=== PATIENT | female | born 1955 | race Caucasian/White ===

== ENCOUNTER → 2023-01-15 | Outpatient (CLI) | payer OTHER ==
[2023-01-15 11:12] LABS: Basophils # (auto) 0 10 ^3/uL (0-0.2); Basophils % (auto) 0.5 % (0.0-2.0); Eosinophils # (auto) 0 10 ^3/uL (0-0.8); Eosinophils % (auto) 0.9 % (0.0-7.0); Hematocrit 44.2 % (36.0-46.0); Lymphocytes # (auto) 1.9 10 ^3/uL (0.4-5.4); Lymphocytes % (auto) 41.5 % (10.0-50.0); Mean Corpuscular Hemoglobin 29.9 pg (28.0-32.0); Mean Corpuscular Hgb Conc. 33.8 g/dL (32.0-36.0); Mean Corpuscular Volume 88.5 fL (80.0-100.0); Monocytes # (auto) 0.4 10 ^3/uL (0-1.3); Monocytes % (auto) 9.5 % (0.0-12.0); Neutrophils # (auto) 2.2 10 ^3/uL (1.6-8.6); Neutrophils % (auto) 47.6 % (37.0-80.0); Nucleated Red Blood Cells % 0.1 %; Red Cell Distribution Width 13.3 % (11.8-14.3); White Blood Cell 4.6 10^3/uL (4.4-10.8)
[2023-01-15 11:23] LABS: Urine Bacteria NONE SEEN /hpf (None Seen); Urine Blood Negative /uL (Negative); Urine Clarity Clear (Clear); Urine Color Yellow (Yellow); Urine Mucus FEW (None Seen); Urine Protein, UAD Negative (Negative); Urine Specific Gravity 1.016 (1.001-1.035); Urine Urobilinogen Normal (Negative); Urine WBC 1 /hpf (0 - 5)
[2023-01-15 11:35] LABS: Alanine Aminotransferase 14 U/L (7-40); Albumin 5.1 g/dL (3.2-4.8); Alkaline Phosphatase 87 U/L (46-116); Anion Gap 6 (5-15); Aspartate Aminotransferase 15 U/L (13-40); Calcium 10.2 mg/dL (8.7-10.4); Carbon Dioxide 30 mmol/L (20-30); Chloride 102 mmol/L (98-107); Glucose 93 mg/dL (74-106); Potassium 3.8 mmol/L (3.5-5.1); Sodium 138 mmol/L (136-145); Uric Acid 4.6 mg/dL (3.1-7.8)
[2023-01-15 11:36] LABS: BUN/Creatinine Ratio 13.5 (10.0-20.0); Blood Urea Nitrogen 12 mg/dL (9-23)
[2023-01-15 11:38] LABS: Bilirubin, Total 1.4 mg/dL (0.2-1.0)
[2023-01-15 11:39] LABS: Folate (Folic Acid) > 24.00 ng/mL (>5.38)
[2023-01-15 11:51] LABS: Triglycerides 111 mg/dL (< 150)
[2023-01-15 11:52] LABS: LDL Cholesterol 243 mg/dL (< 100)
[2023-01-15 11:53] LABS: Cholesterol 324 mg/dL (< 200); HDL Cholesterol 66 mg/dL (40-59)
== END | disposition home or self-care (01) ==
LOC: LAB 10:47
PROVIDERS: ATTEND Internal Medicine
DX: E61.2 Magnesium deficiency (principal); R78.89 Finding of other specified substances, not normally found in blood; R68.89 Other general symptoms and signs; E78.41 Elevated Lipoprotein(a); E79.0 Hyperuricemia without signs of inflammatory arthritis and tophaceous disease; E85.9 Amyloidosis, unspecified; R82.991 Hypocitraturia; R82.90 Unspecified abnormal findings in urine; R82.79 Other abnormal findings on microbiological examination of urine; D51.9 Vitamin B12 deficiency anemia, unspecified
CPT/HCPCS: 36415; 80053; 80061; 81001; 82306; 82607; 82746; 83036; 83735; 84443; 84550; 85025; 87086

== ENCOUNTER → 2023-04-23 | Outpatient (CLI) | payer OTHER ==
[~2023-04-23] MED LIST: HYDR25TA5 PO; LOSA25TA15 PO; SEMA1INJ2 SC
== END | disposition home or self-care (01) ==
LOC: XYW 10:20
PROVIDERS: ATTEND Internal Medicine
DX: N63.22 Unspecified lump in the left breast, upper inner quadrant (principal); Z79.899 Other long term (current) drug therapy; Z98.890 Other specified postprocedural states
CPT/HCPCS: 19083; 76642; 76942

== ENCOUNTER 2023-05-06 09:53 | Day surgery (SDC) | payer OTHER ==
[2023-04-30 10:14] LABS: Basophils # (auto) 0 10 ^3/uL (0-0.2); Basophils % (auto) 0.8 % (0.0-2.0); Eosinophils # (auto) 0.1 10 ^3/uL (0-0.8); Eosinophils % (auto) 1.6 % (0.0-7.0); Hemoglobin 14.8 g/dL (12.2-16.2); Lymphocytes # (auto) 1.4 10 ^3/uL (0.4-5.4); Lymphocytes % (auto) 37.5 % (10.0-50.0); Mean Corpuscular Hemoglobin 29.9 pg (28.0-32.0); Mean Corpuscular Hgb Conc. 33.6 g/dL (32.0-36.0); Mean Corpuscular Volume 88.9 fL (80.0-100.0); Monocytes # (auto) 0.3 10 ^3/uL (0-1.3); Monocytes % (auto) 8.3 % (0.0-12.0); Neutrophils % (auto) 51.8 % (37.0-80.0); Nucleated Red Blood Cells % 0.1 %; Red Blood Cells 4.95 10^6/uL (4.0-5.20); Red Cell Distribution Width 13.4 % (11.8-14.3); White Blood Cell 3.8 10^3/uL (4.4-10.8)
[2023-04-30 10:27] LABS: Urine Bacteria FEW /hpf (None Seen); Urine Blood Negative /uL (Negative); Urine Clarity Clear (Clear); Urine Color Colorless (Yellow); Urine Mucus FEW (None Seen); Urine Protein, UAD Negative (Negative); Urine Specific Gravity 1.012 (1.001-1.035); Urine Urobilinogen Normal (Negative); Urine WBC 1 /hpf (0 - 5); Urine pH 6.5 (5.0-8.0)
[2023-04-30 10:41] LABS: INR 0.98 (0.9-1.15); Partial Thromboplastin Time 27.4 SEC (24.5-34.5); Prothrombin Time 10.3 sec (9.3-11.8)
[2023-04-30 11:28] LABS: Alanine Aminotransferase 13 U/L (7-40); Alkaline Phosphatase 84 U/L (46-116); Anion Gap 7 (5-15); BUN/Creatinine Ratio 11.1 (10.0-20.0); Blood Urea Nitrogen 9 mg/dL (9-23); Calcium 10.1 mg/dL (8.5-10.1); Carbon Dioxide 28 mmol/L (20-30); Chloride 105 mmol/L (98-107); Glucose 88 mg/dL (74-106); Potassium 4.1 mmol/L (3.5-5.1); Sodium 140 mmol/L (136-145)
[2023-04-30 11:29] LABS: Albumin 4.7 g/dL (3.2-4.8); Aspartate Aminotransferase 17 U/L (13-40)
[2023-04-30 11:30] LABS: Bilirubin, Total 0.8 mg/dL (0.2-1.0)
[~2023-05-06] VITALS: Ht 162.6 cm; Wt 63.5 kg
[2023-05-06] MEDS ORDERED: ceFAZolin 2 GM/D5W50ml 50 ML IV ONE (11:02)
[2023-05-06] MEDS ORDERED: fentaNYL CITRATE 100 MCG/2 ML VL ONE (11:49)
[2023-05-06] MEDS ORDERED: MIDAZOLAM HCL 2MG/2ML 2ml VIAL (1mg/ml) ONE (11:49)
[2023-05-06] MEDS: LIDOCAINE 1% HCL (LOCAL ANESTH.) INJ 20ML MDV ONE (12:13)
[2023-05-06] MEDS: BUPIVACAINE 0.25% INJ 50ML VIAL ONE (12:13)
[2023-05-06] MEDS ORDERED: ONDANSETRON HCL 4 MG/2 ML VIAL ONE (12:34)
[2023-05-06] MEDS ORDERED: PROPOFOL 10 MG/ML 20 ML IV ONE (12:34)
[2023-05-06] MEDS ORDERED: LIDOCAINE 2% (LOCAL ANESTH.) PF 5ml SDV ONE (12:34)
[2023-05-06] MEDS ORDERED: HYDROmorphone HCL 2 MG/ML VL/or syr IV PRN (12:45)
[2023-05-06] MEDS ORDERED: ONDANSETRON HCL 4 MG/2 ML VIAL IV PRN (12:45)
[2023-05-06 12:48] VITALS: PULSE 65; RESP 19
[2023-05-06 13:33] VITALS: BP 148/88; PULSE 63; RESP 11; O2SAT 97
== END 2023-05-06 13:50 | disposition home or self-care (01) ==
LOC: SUR 09:53
PROVIDERS: ATTEND Podiatrist
DX: M67.471 Ganglion, right ankle and foot (principal); I10 Essential (primary) hypertension; Z79.899 Other long term (current) drug therapy
CPT/HCPCS: 28092; 36415; 80053; 81001; 85025; 85610; 85730; 88305; J0690; J2001; J2250; J2405; J2704; J3010; J3490

== ENCOUNTER → 2023-05-13 | Outpatient (CLI) | payer OTHER ==
[2023-05-13 12:28] LABS: Basophils # (auto) 0 10 ^3/uL (0-0.2); Basophils % (auto) 0.7 % (0.0-2.0); Eosinophils # (auto) 0 10 ^3/uL (0-0.8); Eosinophils % (auto) 0.9 % (0.0-7.0); Hemoglobin 15.5 g/dL (12.2-16.2); Lymphocytes # (auto) 1.9 10 ^3/uL (0.4-5.4); Lymphocytes % (auto) 40.1 % (10.0-50.0); Mean Corpuscular Hemoglobin 30.2 pg (28.0-32.0); Mean Corpuscular Hgb Conc. 33.8 g/dL (32.0-36.0); Mean Corpuscular Volume 89.4 fL (80.0-100.0); Monocytes # (auto) 0.4 10 ^3/uL (0-1.3); Neutrophils # (auto) 2.3 10 ^3/uL (1.6-8.6); Neutrophils % (auto) 50.3 % (37.0-80.0); Nucleated Red Blood Cells % 0.2 %; Red Blood Cells 5.14 10^6/uL (4.0-5.20); Red Cell Distribution Width 13.9 % (11.8-14.3); White Blood Cell 4.7 10^3/uL (4.4-10.8)
[2023-05-13 12:31] LABS: Urine Bacteria NONE SEEN /hpf (None Seen); Urine Blood Negative /uL (Negative); Urine Clarity Clear (Clear); Urine Color Yellow (Yellow); Urine Mucus FEW (None Seen); Urine Protein, UAD Negative (Negative); Urine Specific Gravity 1.021 (1.001-1.035); Urine Urobilinogen Normal (Negative); Urine WBC 1 /hpf (0 - 5); Urine pH 5.5 (5.0-8.0)
[2023-05-13 12:51] LABS: Alanine Aminotransferase 20 U/L (7-40); Alkaline Phosphatase 96 U/L (46-116); Anion Gap 6 (5-15); Aspartate Aminotransferase 21 U/L (13-40); BUN/Creatinine Ratio 16.3 (10.0-20.0); Blood Urea Nitrogen 14 mg/dL (9-23); Carbon Dioxide 29 mmol/L (20-30); Chloride 105 mmol/L (98-107); Glucose 97 mg/dL (74-106); Magnesium 1.8 mg/dL (1.6-2.6); Sodium 140 mmol/L (136-145)
[2023-05-13 12:52] LABS: Bilirubin, Total 0.6 mg/dL (0.2-1.0); Total Protein 7.6 g/dL (5.7-8.2)
[2023-05-13 12:55] LABS: Folate (Folic Acid) 22.27 ng/mL (>5.38)
[2023-05-13 13:04] LABS: Triglycerides 94 mg/dL (< 150)
[2023-05-13 13:05] LABS: LDL Cholesterol 147 mg/dL (< 100)
[2023-05-13 13:06] LABS: Cholesterol 232 mg/dL (< 200); HDL Cholesterol 76 mg/dL (40-59)
== END | disposition home or self-care (01) ==
LOC: LAB 11:50
PROVIDERS: ATTEND Internal Medicine
DX: R78.89 Finding of other specified substances, not normally found in blood (principal); E78.9 Disorder of lipoprotein metabolism, unspecified; R68.89 Other general symptoms and signs; R73.09 Other abnormal glucose; E61.2 Magnesium deficiency; E79.0 Hyperuricemia without signs of inflammatory arthritis and tophaceous disease; E85.9 Amyloidosis, unspecified; R82.90 Unspecified abnormal findings in urine; D51.9 Vitamin B12 deficiency anemia, unspecified
CPT/HCPCS: 36415; 80053; 80061; 81001; 82306; 82607; 82746; 83036; 83735; 84443; 85025; 87086

== ENCOUNTER → 2023-08-04 | Outpatient (CLI) | payer OTHER ==
[~2023-08-04] MED LIST changes: +LOSA-533 PO; -LOSA25TA15 PO
[2023-08-04 10:30] LABS: Urine Bacteria None Seen /hpf (None Seen)
[2023-08-04 10:41] LABS: Basophils # (auto) 0 10 ^3/uL (0-0.2); Basophils % (auto) 0.3 % (0.0-2.0); Eosinophils # (auto) 0.1 10 ^3/uL (0-0.8); Eosinophils % (auto) 1.1 % (0.0-7.0); Hematocrit 41.4 % (36.0-46.0); Hemoglobin 14.2 g/dL (12.2-16.2); Lymphocytes # (auto) 1.6 10 ^3/uL (0.4-5.4); Lymphocytes % (auto) 32.2 % (10.0-50.0); Mean Corpuscular Hemoglobin 30.3 pg (28.0-32.0); Mean Corpuscular Hgb Conc. 34.2 g/dL (32.0-36.0); Mean Corpuscular Volume 88.6 fL (80.0-100.0); Monocytes # (auto) 0.4 10 ^3/uL (0-1.3); Monocytes % (auto) 7.7 % (0.0-12.0); Neutrophils # (auto) 2.9 10 ^3/uL (1.6-8.6); Neutrophils % (auto) 58.7 % (37.0-80.0); Nucleated Red Blood Cells % 0.1 %; Red Blood Cells 4.67 10^6/uL (4.0-5.20); Red Cell Distribution Width 13.7 % (11.8-14.3); White Blood Cell 4.9 10^3/uL (4.4-10.8)
[2023-08-04 10:49] LABS: Urine Blood TRACE /uL (Negative); Urine Color Yellow (Yellow); Urine Mucus FEW (None Seen); Urine Protein, UAD TRACE (Negative); Urine Specific Gravity 1.028 (1.001-1.035); Urine Urobilinogen Normal (Negative); Urine WBC 3 /hpf (0 - 5); Urine pH 5.5 (5.0-9.0)
[2023-08-04 10:50] LABS: Urine Clarity Hazy (Clear)
[2023-08-04 11:25] LABS: Alanine Aminotransferase 17 U/L (7-40); Albumin 4.7 g/dL (3.2-4.8); Alkaline Phosphatase 79 U/L (46-116); Anion Gap 5 (5-15); Aspartate Aminotransferase 17 U/L (13-40); BUN/Creatinine Ratio 14.1 (10.0-20.0); Blood Urea Nitrogen 12 mg/dL (9-23); Calcium 10.4 mg/dL (8.5-10.1); Carbon Dioxide 28 mmol/L (20-30); Chloride 107 mmol/L (98-107); Cholesterol 216 mg/dL (< 200); Glucose 101 mg/dL (74-106); HDL Cholesterol 70 mg/dL (40-59); LDL Cholesterol 132 mg/dL (< 100); Potassium 4.2 mmol/L (3.5-5.1); Sodium 140 mmol/L (136-145); Triglycerides 108 mg/dL (< 150)
[2023-08-04 11:26] LABS: Total Protein 7.3 g/dL (5.7-8.2)
[2023-08-04 11:36] LABS: Folate (Folic Acid) 24.65 ng/mL (>5.38)
[2023-08-04 11:54] LABS: Bilirubin, Total 0.6 mg/dL (0.2-1.0)
[2023-08-04 12:35] LABS: Uric Acid 4.6 mg/dL (3.1-7.8)
== END | disposition home or self-care (01) ==
LOC: LAB 10:15
PROVIDERS: ATTEND Internal Medicine
DX: K92.2 Gastrointestinal hemorrhage, unspecified (principal); E78.5 Hyperlipidemia, unspecified; R73.03 Prediabetes; Z68.24 Body mass index [BMI] 24.0-24.9, adult; Z79.899 Other long term (current) drug therapy
CPT/HCPCS: 36415; 80053; 80061; 81001; 82306; 82607; 82746; 83036; 83735; 84443; 84550; 85025; 87086

== ENCOUNTER → 2023-12-24 | Outpatient (CLI) | payer OTHER ==
[2023-12-24 12:19] LABS: Urine Bacteria None Seen /hpf (None Seen)
[2023-12-24 12:41] LABS: Basophils # (auto) 0 10 ^3/uL (0-0.2); Basophils % (auto) 0.7 % (0.0-2.0); Eosinophils # (auto) 0 10 ^3/uL (0-0.8); Eosinophils % (auto) 0.6 % (0.0-7.0); Hematocrit 40.6 % (36.0-46.0); Hemoglobin 13.8 g/dL (12.2-16.2); Lymphocytes # (auto) 1.3 10 ^3/uL (0.4-5.4); Lymphocytes % (auto) 30.6 % (10.0-50.0); Mean Corpuscular Hemoglobin 30.4 pg (28.0-32.0); Mean Corpuscular Volume 89.6 fL (80.0-100.0); Monocytes # (auto) 0.3 10 ^3/uL (0-1.3); Monocytes % (auto) 7.9 % (0.0-12.0); Neutrophils # (auto) 2.6 10 ^3/uL (1.6-8.6); Neutrophils % (auto) 60.2 % (37.0-80.0); Platelet Count (auto) 324 10^3/uL (140-450); Red Blood Cells 4.54 10^6/uL (4.0-5.20); Red Cell Distribution Width 13.5 % (11.8-14.3); White Blood Cell 4.3 10^3/uL (4.4-10.8)
[2023-12-24 13:15] LABS: Urine Blood Negative /uL (Negative); Urine Clarity Clear (Clear); Urine Color Light-Yellow (Yellow); Urine Protein, UAD Negative (Negative); Urine Specific Gravity 1.011 (1.001-1.035); Urine Urobilinogen Normal (Negative); Urine WBC 1 /hpf (0 - 5)
[2023-12-24 13:42] LABS: Alanine Aminotransferase 11 U/L (7-40); Albumin 4.4 g/dL (3.2-4.8); Anion Gap 7 (5-15); Aspartate Aminotransferase 9 U/L (13-40); BUN/Creatinine Ratio 13.8 (10.0-20.0); Bilirubin, Total 0.8 mg/dL (0.2-1.0); Blood Urea Nitrogen 11 mg/dL (9-23); Calcium 9.9 mg/dL (8.7-10.4); Carbon Dioxide 28 mmol/L (20-31); Chloride 107 mmol/L (98-107); Cholesterol 238 mg/dL (< 200); Glucose 86 mg/dL (74-106); HDL Cholesterol 56 mg/dL (40-59); LDL Cholesterol 164 mg/dL (< 100); Potassium 3.8 mmol/L (3.5-5.1); Sodium 142 mmol/L (136-145); Triglycerides 148 mg/dL (< 150)
[2023-12-24 13:46] LABS: Alkaline Phosphatase 91 U/L (46-116)
[2023-12-24 13:47] LABS: Free T3 2.88 pg/mL (2.3-4.2); Free T4 (Free Thyroxine) 1.2 ng/dL (0.89-1.76)
== END | disposition home or self-care (01) ==
LOC: LAB 11:54
PROVIDERS: ATTEND Internal Medicine
DX: I10 Essential (primary) hypertension (principal); K92.2 Gastrointestinal hemorrhage, unspecified; R73.03 Prediabetes; E78.5 Hyperlipidemia, unspecified
CPT/HCPCS: 36415; 80053; 80061; 81001; 82306; 82533; 82607; 83036; 84439; 84443; 84481; 85025; 87086

== ENCOUNTER 2024-05-03 13:13 | Inpatient (IN) | payer OTHER ==
[~2024-05-03] VITALS: Ht 162.6 cm; Wt 72.8 kg
[2024-05-03] MEDS: SODIUM CHLORIDE 0.9% 1,000 ML IV ONE (13:45)
--- NOTE | 2024-05-03 14:18 | ED.PDOC ---
GI ASSESSMENT HPI Comments HPI: Poor Historian. 68 y/o F, presents to the ED for the CC of GI bleed. Patient states, that she has been experiencing suprapubic pain with associated diarrhea [id number]. Patient comments on, symptoms worsening today with diarrhea to be bright red in color. Patient endorses on, never having blood in stool in the past. No other symptoms or modifying factors at this time. Initial Vital Signs: Temp : BP: HR: RR: SpO2: Past Medical History: Denies any Past Surgical History: Denies any Social History: Denies smoking, ETOH, or drug use. Medications: Allergies: NKDA REVIEW OF SYSTEMS: CONSTITUTIONAL: Denies acute: fever, diaphoresis, chills, HEAD: Denies acute: headache, photophobia Eyes: Denies acute: Double vision, vision loss, eye pain, eye discharge. EARS: Denies acute: tinnitus, hearing loss, ear discharge, ear pain, THROAT: Denies acute: sore throat, swelling, difficulty swallowing , pain with swallowing, change in voice. NECK: Denies acute: neck pain, neck swelling, stiff neck. HEART: Denies acute : chest pain, palpitations, LUNGS: Denies acute: SOB, wheezing, cough, hemoptysis ABDOMEN: Denies acute: melena , hematemesis, SKIN: Denies acute: rash, redness, lesions, itchiness. EXTREMITIES: Denies acute: calf pain, numbness, tingling, weakness, denies pain in extremity. Denies acute: Low back pain. Neuro: Denies acute: focal neurological deficit, motor or sensory focal neurological deficit, tremors, seizure like activity, confusion, dizziness, change in mental status, loss of bowel or bladder function, cauda equina like symptoms. : Denies acute: dysuria, hematuria, flank pain, increase in urinary frequency. PSYCH: Denies acute: hallucination, suicidal ideation, homicidal ideation. FEMALE: Denies acute: abnormal vaginal bleeding, foul odor, unusual discharge. PHYSICAL EXAM: General: no acute distress, awake and alert. Head: normocephalic, atraumatic. Neck: supple, trachea is midline, no swelling. Throat: Normal phonation. Eyes:, no erythema, no purulent discharge, no proptosis, no icterus. Heart: regular rate, regular rhythm, no significant murmur appreciated. Lungs: no apparent respiratory distress, Able to speak in full sentences. No wheezing, no rhonchi, no crackles. No stridors Clear to auscultation bilaterally. Abdomen: Lower mid abdominal tender to palpation, non distended, soft, no guarding, no rebound, + bowel sounds. Neuro: Awake, Alert, oriented to name, self, situation, follows commands GCS=15. Speech is normal. Skin: no petechia, no purpura, no cyanosis, non-pale, not jaundice. Lower extremities: --no - Pitting edema no deformity, no focal swelling, no calf TTP. Makes eye contact. moves all four extremities. Face: no apparent facial droop. Ambulating in the ED independently. ED COURSE: Chief Complaint: GI Bleed Time Seen by MD: 14:00 Primary Care Provider: none Reviewed Notes: Nurses Notes, Medications, Allergies Allergies: Coded Allergies: NO KNOWN ALLERGIES (Unverified , 09/17/17) Home Meds Reported Medications Losartan Potassium (Losartan Potassium) Unknown Strength Tab, PO DAILY, TAB 04/30/23 Hctz (Hydrochlorothiazide) 25 Mg Tab, 25 MG PO DAILY, TAB 04/30/23 Semaglutide (Ozempic 8 mg/3Ml) 1 Inj Inj, 1 MG SC QWEEKLY, INJ 04/30/23 Information Source: Patient Mode of Arrival: Ambulatory Timing: Months Duration: Since onset Prehospital treatment: None Quality: None Vomitus: None Stool: Blood Streaked, Watery Severity: None Recent: None Recent Hx of: None Modifying Factors: Nothing Associated sign and symptoms: None Was a procedure done? Was a procedure done?: No GI differential Dx Differential Diagnosis: Other (Diverticulitis, colitis, fistula, neoplasm, hemorrhoids, anal fissures, constipation, Crohn's disease, ulcerative colitis) X-Ray, Labs, Meds, VS Vital Signs Date Time Temp Pulse Resp B/P (MAP) Pulse Ox O2 Delivery O2 Flow Rate FiO2 05/03/24 13:54 98.1 87 17 140/102 (115) 98 Lab Test 05/03/24 18:35 05/03/24 14:26 05/03/24 14:25 Range/Units Urine Color Light-yellow Yellow Urine Clarity Clear Clear Urine pH 6.5 5.0-9.0 Urine Specific [place] 1.008 1.001-1.035 Urine Protein Negative Negative Urine Ketones Negative Negative Urine Blood Negative Negative /uL Urine Nitrite Negative Negative Urine Bilirubin Negative Negative Urine Urobilinogen Normal Negative mg/dL Urine Leukocyte Esterase Trace Negative /uL Urine RBC 1 0 - 4 /hpf Urine Microscopic WBC 1 0-5 /HPF Urine Squamous Epithelial Cells None seen <5 /hpf Urine Bacteria None seen None Seen /hpf Urine Glucose Normal Normal mg/dL Lactic Acid Level 1.2 0.4-2.0 mmol/L White Blood Count 7.4 4.4-10.8 10^3/uL Red Blood Count 4.81 4.0-5.20 10^6/uL Hemoglobin 14.3 12.2-16.2 g/dL Hematocrit 42.7 36.0-46.0 % Mean Corpuscular Volume 88.8 80.0-100.0 fL Mean Corpuscular Hemoglobin 29.8 28.0-32.0 pg Mean Corpuscular Hemoglobin Concent 33.6 32.0-36.0 g/dL Red Cell Distribution Width 13.4 11.8-14.3 % Platelet Count 300 140-450 10^3/uL Mean Platelet Volume 7.2 6.9-10.8 fL Neutrophils (%) (Auto) 73.7 37.0-80.0 % Lymphocytes (%) (Auto) 19.1 10.0-50.0 % Monocytes (%) (Auto) 6.7 0.0-12.0 % Eosinophils (%) (Auto) 0.3 0.0-7.0 % Basophils (%) (Auto) 0.2 0.0-2.0 % Neutrophils # (Auto) 5.4 1.6-8.6 10 ^3/uL Lymphocytes # (Auto) 1.4 0.4-5.4 10 ^3/uL Monocytes # (Auto) 0.5 0-1.3 10 ^3/uL Eosinophils # (Auto) 0 0-0.8 10 ^3/uL Basophils # (Auto) 0 0-0.2 10 ^3/uL Nucleated Red Blood Cells 0.1 % Prothrombin Time 10.4 9.3-11.8 sec Prothrombin Time INR 0.98 0.9-1.15 Activated Partial Thromboplast Time 27.3 24.5-34.5 SEC Sodium Level 141 136-145 mmol/L Potassium Level 3.7 3.5-5.1 mmol/L Chloride Level 105 98-107 mmol/L Carbon Dioxide Level 30 20-31 mmol/L Anion Gap 6 5-15 Blood Urea Nitrogen 12 9-23 mg/dL Creatinine 0.83 0.550-1.02 mg/dL Glomerular Filtration Rate Calc 77 >90 mL/min BUN/Creatinine Ratio 14.5 10.0-20.0 Serum Glucose 76 74-106 mg/dL Calcium Level 10.0 8.7-10.4 mg/dL Total Bilirubin 1.0 0.2-1.0 mg/dL Aspartate Amino Transferase (AST) 21 13-40 U/L Alanine Aminotransferase (ALT) 21 7-40 U/L Alkaline Phosphatase 86 46-116 U/L Troponin I High Sensitivity < 3 L </=34 ng/L Total Protein 7.0 5.7-8.2 g/dL Albumin 4.9 H 3.2-4.8 g/dL Lipase 59 H 12-53 U/L [place] [address] Ph: [phone] DIAGNOSTIC IMAGING Diagnostic Imaging Report : [id number] Signed PATIENT: TUSHAR MICHELLE ACCT: [id number] UNIT: [id number] : 1955 LOC: ER ROOM / BED: / AGE / SEX: 68 / F ADM STATUS: REG ER SERVICE 1345 ORDERING PHYSICIAN: LUIS MIDDLETON DO PROCEDURE(s): ABPL - CT AB PEL WO CON-NO ORAL OR IV REASON: rectal bleed ORDER NUMBER(s): [id number], ACCESSION NUMBER(s): [id number] Exam: CT CT AB PEL WO CON-NO ORAL OR IV History: rectal bleed Comparison Study: None Technique: Multidetector spiral CT of the abdomen and pelvis was performed from lung bases to pubic symphysis. Imaging was performed without IV contrast. Axial, coronal and sagittal multiplanar reformats were obtained from the axial data set by the technologist. Radiation dose : Abdomen/Pelvis: CTDIvol 8.42 mGy, DLP 434.34 mGy*cm. Findings: Evaluation of solid organs is limited due to lack of intravenous contrast use. Lung Bases: No acute or significant lung base finding. Normal heart size. No pleural or pericardial effusion. Liver: Subcentimeter cyst in the bladder near the gallbladder fossa. Gallbladder and biliary Tree: Unremarkable Spleen: Unremarkable Pancreas: The pancreas is grossly normal in appearance. Adrenal Glands: Unremarkable Kidneys: Bilateral renal cysts. Punctate left renal calculus. Coarse left renal cortical calcification measuring up to 6 mm. No hydronephrosis. Bladder: Grossly unremarkable for degree of distention. Bowel: The stomach is grossly normal in appearance. Small bowel and colon are normal in caliber and distribution. Normal appendix is visualized in the right lower quadrant without findings of appendicitis. Rectosigmoid as well as transverse and descending colon is under distended and thick walled. Ascites: Absent Lymphadenopathy: No mesenteric, retroperitoneal or periportal lymphadenopathy. Abdominal wall and Mesentery: Unremarkable. Vasculature: The visualized abdominal aorta is normal in size and caliber. Evaluation of abdominal and pelvic vessels is limited due to lack of intravenous contrast. Pelvic Organs: Unremarkable Musculoskeletal: Postsurgical changes L4-5. IMPRESSION: 1. No acute abdominal or pelvic findings. Punctate nonobstructive left renal calculus. Bilateral renal cysts. Coarse calcification in the left renal parenchyma. Subcentimeter hepatic cyst. Diffuse underdistention of colon is nonspecific, an infectious or inflammatory process is not excluded. Clinical correlation and continued follow-up is recommended. Radiation optimization: All CT scans at this facility use at least one of these dose optimization techniques: Automated exposure control mA and/or kV adjustment per patient size (includes targeted exams where dose is matched to clinical in dication) or iterative reconstruction. HS:Y ATED BY: CARLOS MONTENEGRO MD DICTATED DATE/TIME: 05/03/24 141 SIGNED BY: CARLOS MONTENEGRO MD SIGNED DATE/TIME: 05/03/241418 CC: Time of 1ST Reevaluation: 14:30 Reevaluation 1ST: Unchanged Patient Education/Counseling: Diagnosis, Treatment Family Education/Counseling: No Family Present Comments Patient presented with the above HPI.--rectal BLEED----workup was initiated. patient was found with the above mentioned diagnosis. the following medications were ordered: IV FLUIDS, PANTOPRAZOLE please refer to order lists of meds and tests obtained by myself Dr. Middleton. Patient ED course and VS have been stabilized. Patient has been reassessed in the ED and remained in a stable condition. Pertinent incidental findings were discussed with the patient and/or family. Patient/family voices understanding and is agreeable with plan. Patient has been observed in the ED adequate length of time to insure improvement/stability. Escalation of care considered: Consideration of escalation to observation or admission Patient was ADMITTED to the medicine team for further evaluation and treatment of their presentation. All the reports of any imaging studies that were ordered by myself were reviewed by myself. Departure 1 Departure Time of Disposition: 14:30 Impression: Primary Impression: Rectal bleeding Additional Impression: Abdominal pain Disposition: ADMITTED INPATIENT Admit to: [place] Condition: Guarded Additional Instructions: [place] [address] Ph: [phone] DIAGNOSTIC IMAGING Diagnostic Imaging Report : [id number] Signed PATIENT: TUSHAR MICHELLE ACCT: [id number] UNIT: [id number] : 1955 LOC: ER ROOM / BED: / AGE / SEX: 68 / F ADM STATUS: REG ER SERVICE 1345 ORDERING PHYSICIAN: LUIS MIDDLETON DO PROCEDURE(s): ABPL - CT AB PEL WO CON-NO ORAL OR IV REASON: rectal bleed ORDER NUMBER(s): [id number], ACCESSION NUMBER(s): [id number] Exam: CT CT AB PEL WO CON-NO ORAL OR IV History: rectal bleed Comparison Study: None Technique: Multidetector spiral CT of the abdomen and pelvis was performed from lung bases to pubic symphysis. Imaging was performed without IV contrast. Axial, coronal and sagittal multiplanar reformats were obtained from the axial data set by the technologist. Radiation dose : Abdomen/Pelvis: CTDIvol 8.42 mGy, DLP 434.34 mGy*cm. Findings: Evaluation of solid organs is limited due to lack of intravenous contrast use. Lung Bases: No acute or significant lung base finding. Normal heart size. No pleural or pericardial effusion. Liver: Subcentimeter cyst in the bladder near the gallbladder fossa. Gallbladder and biliary Tree: Unremarkable Spleen: Unremarkable Pancreas: The pancreas is grossly normal in appearance. Adrenal Glands: Unremarkable Kidneys: Bilateral renal cysts. Punctate left renal calculus. Coarse left renal cortical calcification measuring up to 6 mm. No hydronephrosis. Bladder: Grossly unremarkable for degree of distention. Bowel: The stomach is grossly normal in appearance. Small bowel and colon are normal in caliber and distribution. Normal appendix is visualized in the right lower quadrant without findings of appendicitis. Rectosigmoid as well as trans verse and descending colon is under distended and thick walled. Ascites: Absent Lymphadenopathy: No mesenteric, retroperitoneal or periportal lymphadenopathy. Abdominal wall and Mesentery: Unremarkable. Vasculature: The visualized abdominal aorta is normal in size and caliber. Evaluation of abdominal and pelvic vessels is limited due to lack of intravenous contrast. Pelvic Organs: Unremarkable Musculoskeletal: Postsurgical changes L4-5. IMPRESSION: 1. No acute abdominal or pelvic findings. Punctate nonobstructive left renal calculus. Bilateral renal cysts. Coarse calcification in the left renal parenchyma. Subcentimeter hepatic cyst. Diffuse underdistention of colon is nonspecific, an infectious or inflammatory process is not excluded. Clinical correlation and continued follow-up is recommended. Radiation optimization: All CT scans at this facility use at least one of these dose optimization techniques: Automated exposure control mA and/or kV adjustment per patient size (includes targeted exams where dose is matched to clinical indication) or iterative reconstruction. HS:Y ATED BY: CARLOS MONTENEGRO MD DICTATED DATE/TIME: 05/03/24 1419 SIGNED BY: CARLOS MONTENEGRO MD SIGNED DATE/TIME: 05/03/24 1419 CC: Discharged With: Self Critical Care Note Critical Care Time?: No Heart Score Heart Score: Heart Score Response (Comments) Value History N/A 0 EKG N/A 0 Age N/A 0 Risk Factors N/A 0 Troponin N/A 0 Total 0 I personally scribed for LUIS MIDDLETON DO ([email or web address]) on 05/03/24 at 14:18. Electronically submitted by Shanti Moscoso ([email or web address]). I personally scribed for LUIS MIDDLETON DO ([email or web address]) on 05/03/24 at 14:26. Electronically submitted by Shanti Moscoso ([email or web address]). I personally scribed for LUIS MIDDLETON DO ([email or web address]) on 05/03/24 at 15:50. Electronically submitted by Shanti Moscoso ([email or web address]). LUIS MIDDLETON DO May 03, 2024 14:18
--- NOTE | 2024-05-03 14:21 | DVH ---
Exam: CT CT AB PEL WO CON-NO ORAL OR IV History: rectal bleed Comparison Study: None Technique: Multidetector spiral CT of the abdomen and pelvis was performed from lung bases to pubic symphysis. Imaging was performed without IV contrast. Axial, coronal and sagittal multiplanar reform ats were obtained from the axial data set by the technologist. Radiation dose : Abdomen/Pelvis: CTDIvol 8.42 mGy, DLP 434.34 mGy*cm. Findings: Evaluation of solid organs is limited due to lack of intravenous contrast use. Lung Bases: No acute or significant lung base finding. Normal heart size. No pleural or pericardial effusion. Liver: Subcentimeter cyst in the bladder near the gallbladder fossa. Gallbladder and biliary Tree: Unremarkable Spleen: Unremarkable Pancreas: The pancreas is grossly normal in appearance. Adrenal Glands: Unremarkable Kidneys: Bilateral renal cysts. Punctate left renal calculus. Coarse left renal cortical calcificatio n measuring up to 6 mm. No hydronephrosis. Bladder: Grossly unremarkable for degree of distention. Bowel: The stomach is grossly normal in appearance. Small bowel and colon are normal in caliber and d istribution. Normal appendix is visualized in the right lower quadrant without findings of appendici tis. Rectosigmoid as well as transverse and descending colon is under distended and thick walled. Ascites: Absent Lymphadenopathy: No mesenteric, retroperitoneal or periportal lymphadenopathy. Abdominal wall and Mesentery: Unremarkable. Vasculature: The visualized abdominal aorta is normal in size and caliber. Evaluation of abdominal a nd pelvic vessels is limited due to lack of intravenous contrast. Pelvic Organs: Unremarkable Musculoskeletal: Postsurgical changes L4-5. IMPRESSION: 1. No acute abdominal or pelvic findings. Punctate nonobstructive left renal calculus. Bilateral erin al cysts. Coarse calcification in the left renal parenchyma. Subcentimeter hepatic cyst. Diffuse und erdistention of colon is nonspecific, an infectious or inflammatory process is not excluded. Clinical correlation and continued follow-up is recommended. Radiation optimization: All CT scans at this facility use at least one of these dose optimization izaiah hniques: Automated exposure control mA and/or kV adjustment per patient size (includes targeted exams where dose is matched to clinical indication) or iterative reconstruction. HS:Y
[2024-05-03 14:58] LABS: Basophils # (auto) 0 10 ^3/uL (0-0.2); Basophils % (auto) 0.2 % (0.0-2.0); Eosinophils # (auto) 0 10 ^3/uL (0-0.8); Eosinophils % (auto) 0.3 % (0.0-7.0); Hematocrit 42.7 % (36.0-46.0); Hemoglobin 14.3 g/dL (12.2-16.2); Lymphocytes # (auto) 1.4 10 ^3/uL (0.4-5.4); Lymphocytes % (auto) 19.1 % (10.0-50.0); Mean Corpuscular Hemoglobin 29.8 pg (28.0-32.0); Mean Corpuscular Hgb Conc. 33.6 g/dL (32.0-36.0); Mean Corpuscular Volume 88.8 fL (80.0-100.0); Monocytes # (auto) 0.5 10 ^3/uL (0-1.3); Monocytes % (auto) 6.7 % (0.0-12.0); Neutrophils # (auto) 5.4 10 ^3/uL (1.6-8.6); Neutrophils % (auto) 73.7 % (37.0-80.0); Nucleated Red Blood Cells % 0.1 %; Platelet Count (auto) 300 10^3/uL (140-450); Red Blood Cells 4.81 10^6/uL (4.0-5.20); Red Cell Distribution Width 13.4 % (11.8-14.3); White Blood Cell 7.4 10^3/uL (4.4-10.8)
[2024-05-03 15:14] LABS: INR 0.98 (0.9-1.15); Partial Thromboplastin Time 27.3 SEC (24.5-34.5); Prothrombin Time 10.4 sec (9.3-11.8)
[2024-05-03 15:47] LABS: Alanine Aminotransferase 21 U/L (7-40); Alkaline Phosphatase 86 U/L (46-116); Anion Gap 6 (5-15); Aspartate Aminotransferase 21 U/L (13-40); BUN/Creatinine Ratio 14.5 (10.0-20.0); Blood Urea Nitrogen 12 mg/dL (9-23); Carbon Dioxide 30 mmol/L (20-31); Chloride 105 mmol/L (98-107); Glucose 76 mg/dL (74-106); Potassium 3.7 mmol/L (3.5-5.1); Sodium 141 mmol/L (136-145)
[2024-05-03 15:50] LABS: Albumin 4.9 g/dL (3.2-4.8); Lipase 59 U/L (12-53)
[2024-05-03 18:36] LABS: Urine Bacteria None Seen /hpf (None Seen)
[2024-05-03 19:19] LABS: Urine Blood Negative /uL (Negative); Urine Clarity Clear (Clear); Urine Color Light-Yellow (Yellow); Urine Protein, UAD Negative (Negative); Urine Specific Gravity 1.008 (1.001-1.035); Urine Squamous Epithelial Cell None Seen /hpf (<5); Urine Urobilinogen Normal (Negative); Urine WBC 1 /HPF (0-5); Urine pH 6.5 (5.0-9.0)
[2024-05-03] MEDS ORDERED: ONDANSETRON HCL 4 MG/2 ML VIAL IV PRN (19:30)
--- NOTE | 2024-05-03 22:12 | DVHHP2 ---
History of Present Illness Reason for Visit: GI bleed History of Present Illness 68-year-old female presents for evaluation of GI bleed. Patient reports having three episodes of bloody diarrhea. She describes as bright red in color. Denies nausea or vomiting. No abdominal pain. Patient denies being on blood thinners. No dizziness or shortness for breath. No other acute symptoms Past Medical History Hypertension Past Surgical History Denies Family History Noncontributory Smoke: No ALCOHOL: none Drugs: None Lives: with Family Review of Systems Review of Systems Review of systems are currently negative otherwise addressed in HPI. Allergies: Coded Allergies: NO KNOWN ALLERGIES (Unverified , 09/17/17) Medications Current Medications Medications Dose Ordered Sig/Mercedes Route Start Time Stop Time Status Last Admin Dose Admin Hydrochlorothiazide 25 mg DAILY PO 05/04/24 10:00 Losartan Potassium 50 mg DAILY PO 05/04/24 10:00 Ondansetron HCl 4 mg Q4HP PRN IV 05/03/24 19:30 Pantoprazole Sodium 40 mg DAILY IV 05/04/24 10:00 Exam Vital Signs Vital Signs Date Time Temp Pulse Resp B/P (MAP) Pulse Ox O2 Delivery O2 Flow Rate FiO2 05/03/24 20:01 98.1 102 18 147/127 (134) 96 98.1 Exam Gen: 68-year-old female in mild distress Skin: Warm, dry, normal color and texture, no rash. HEENT: Normocephalic atraumatic, mucous membranes moist and pink. Neck: Cervical and supraclavicular nodes normal without enlargement, trachea is midline, thyroid gland is normal without masses. Pulmonary: Clear to auscultation and percussion bilaterally. Cardiac: Regular rate and rhythm. No murmur Abdomen: Soft, nontender, nondistended, bowel sounds present all 4 quadrants, no guarding, no rigidity, no organomegaly. Extremities: No cyanosis, clubbing, no edema Neuro: Cranial nerves II through XII grossly intact, normal affect and speech, n o focal motor deficits. Labs/Xrays ORDERING PHYSICIAN: LUIS MIDDLETON DO PROCEDURE(s): ABPL - CT AB PEL WO CON-NO ORAL OR IV REASON: rectal bleed ORDER NUMBER(s): [id number], ACCESSION NUMBER(s): [id number] Exam: CT CT AB PEL WO CON-NO ORAL OR IV History: rectal bleed Comparison Study: None Technique: Multidetector spiral CT of the abdomen and pelvis was performed from lung bases to pubic symphysis. Imaging was performed without IV contrast. Axial, coronal and sagittal multiplanar reformats were obtained from the axial data set by the technologist. Radiation dose : Abdomen/Pelvis: CTDIvol 8.42 mGy, DLP 434.34 mGy*cm. Findings: Evaluation of solid organs is limited due to lack of intravenous contrast use. Lung Bases: No acute or significant lung base finding. Normal heart size. No pleural or pericardial effusion. Liver: Subcentimeter cyst in the bladder near the gallbladder fossa. Gallbladder and biliary Tree: Unremarkable Spleen: Unremarkable Pancreas: The pancreas is grossly normal in appearance. Adrenal Glands: Unremarkable Kidneys: Bilateral renal cysts. Punctate left renal calculus. Coarse left renal cortical calcification measuring up to 6 mm. No hydronephrosis. Bladder: Grossly unremarkable for degree of distention. Bowel: The stomach is grossly normal in appearance. Small bowel and colon are normal in caliber and distribution. Normal appendix is visualized in the right lower quadrant without findings of appendicitis. Rectosigmoid as well as transverse and descending colon is under distended and thick walled. Ascites: Absent Lymphadenopathy: No mesenteric, retroperitoneal or periportal lymphadenopathy. Abdominal wall and Mesentery: Unremarkable. Vasculature: The visualized abdominal aorta is normal in size and caliber. Evaluation of abdominal and pelvic vessels is limited due to lack of intravenous contrast. Pelvic Organs: Unremarkable Musculoskeletal: Postsurgical changes L4-5. IMPRESSION: 1. No acute abdominal or pelvic findings. Punctate nonobstructive left renal calculus. Bilateral renal cysts. Coarse calcification in the left renal parenchyma. Subcentimeter hepatic cyst. Diffuse underdistention of colon is nonspecific, an infectious or inflammatory process is not excluded. Clinical correlation and continued follow-up is recommended. Radiation optimization: All CT scans at this facility use at least one of these dose optimization techniques: Automated exposure control mA and/or kV adjustment per patient size (includes targeted exams where dose is matched to clinical indication) or iterative reconstruction. HS:Y Labs Test 05/03/24 18:35 05/03/24 14:26 05/03/24 14:25 Range/Units Urine Color Light-yellow Yellow Urine Clarity Clear Clear Urine pH 6.5 5.0-9.0 Urine Specific [place] 1.008 1.001-1.035 Urine Protein Negative Negative Urine Ketones Negative Negative Urine Blood Negative Negative /uL Urine Nitrite Negative Negative Urine Bilirubin Negative Negative Urine Urobilinogen Normal Negative mg/dL Urine Leukocyte Esterase Trace Negative /uL Urine RBC 1 0 - 4 /hpf Urine Microscopic WBC 1 0-5 /HPF Urine Squamous Epithelial Cells None seen <5 /hpf Urine Bacteria None seen None Seen /hpf Urine Glucose Normal Normal mg/dL Lactic Acid Level 1.2 0.4-2.0 mmol/L White Blood Count 7.4 4.4-10.8 10^3/uL Red Blood Count 4.81 4.0-5.20 10^6/uL Hemoglobin 14.3 12.2-16.2 g/dL Hematocrit 42.7 36.0-46.0 % Mean Corpuscular Volume 88.8 80.0-100.0 fL Mean Corpuscular Hemoglobin 29.8 28.0-32.0 pg Mean Corpuscular Hemoglobin Concent 33.6 32.0-36.0 g/dL Red Cell Distribution Width 13.4 11.8-14.3 % Platelet Count 300 140-450 10^3/uL Mean Platelet Volume 7.2 6.9-10.8 fL Neutrophils (%) (Auto) 73.7 37.0-80.0 % Lymphocytes (%) (Auto) 19.1 10.0-50.0 % Monocytes (%) (Auto) 6.7 0.0-12.0 % Eosinophils (%) (Auto) 0.3 0.0-7.0 % Basophils (%) (Auto) 0.2 0.0-2.0 % Neutrophils # (Auto) 5.4 1.6-8.6 10 ^3/uL Lymphocytes # (Auto) 1.4 0.4-5.4 10 ^3/uL Monocytes # (Auto) 0.5 0-1.3 10 ^3/uL Eosinophils # (Auto) 0 0-0.8 10 ^3/uL Basophils # (Auto) 0 0-0.2 10 ^3/uL Nucleated Red Blood Cells 0.1 % Prothrombin Time 10.4 9.3-11.8 sec Prothrombin Time INR 0.98 0.9-1.15 Activated Partial Thromboplast Time 27.3 24.5-34.5 SEC Sodium Level 141 136-145 mmol/L Potassium Level 3.7 3.5-5.1 mmol/L Chloride Level 105 98-107 mmol/L Carbon Dioxide Level 30 20-31 mmol/L Anion Gap 6 5-15 Blood Urea Nitrogen 12 9-23 mg/dL Creatinine 0.83 0.550-1.02 mg/dL Glomerular Filtration Rate Calc 77 >90 mL/min BUN/Creatinine Ratio 14.5 10.0-20.0 Serum Glucose 76 74-106 mg/dL Calcium Level 10.0 8.7-10.4 mg/dL Total Bilirubin 1.0 0.2-1.0 mg/dL Aspartate Amino Transferase (AST) 21 13-40 U/L Alanine Aminotransferase (ALT) 21 7-40 U/L Alkaline Phosphatase 86 46-116 U/L Troponin I High Sensitivity < 3 L </=34 ng/L Total Protein 7.0 5.7-8.2 g/dL Albumin 4.9 H 3.2-4.8 g/dL Lipase 59 H 12-53 U/L Assessment/Plan Assessment/Plan Assessment Rectal bleed Hypertension Plan Admit the patient to [facility] to the hospitalist GI consultation Clear liquid diet Resume home medications Repeat CBC with a.m. labs Continue treatment per orders. Plan discussed with: Patient My Orders Orders - GWEN PEREZ Procedure Category Date Status Time * Gi Dvh Metallographer CONS 05/03/24 Transmitted 19:25 Stool Occult Blood LAB 05/03/24 Logged 19:25 Hydrochlorothiazide PHA 05/04/24 In Process Tablet (Hydrochlorot 10:00 Losartan Tablet PHA 05/04/24 In Process (Cozaar Tablet) 10:00 Basic Metabolic Panel LAB 05/04/24 Verified 04:00 Admit ADMIT 05/03/24 Transmitted 19:25 Ondansetron Hcl PHA 05/03/24 In Process (Zofran) 19:30 Complete Blood Count LAB 05/04/24 Verified 04:00 Condition: Stable MARITO 05/03/24 In Process 19:25 Clear Liq Diet DIET 05/04/24 Transmitted Breakfast Bedrest With Bathroom MARITO 05/03/24 In Process Privileg 19:25 Pantoprazole PHA 05/04/24 In Process (Protonix) 10:00 Date of Service: May 03, 2024 Billing Provider: GWEN PEREZ Common Visit Codes: [id number] INP/OBS CARE (HIGH) GWEN PEREZ May 03, 2024 22:12
[2024-05-04] MEDS: PANTOPRAZOLE 40 MG/10 ML VIAL INJ IV ONE (00:18)
[2024-05-04 02:06] VITALS: PULSE 87; RESP 19; O2SAT 97
[2024-05-04 02:50] LABS: Basophils # (auto) 0 10 ^3/uL (0-0.2); Basophils % (auto) 0.4 % (0.0-2.0); Eosinophils # (auto) 0.1 10 ^3/uL (0-0.8); Eosinophils % (auto) 1.2 % (0.0-7.0); Hematocrit 39.9 % (36.0-46.0); Hemoglobin 13.4 g/dL (12.2-16.2); Lymphocytes % (auto) 26.7 % (10.0-50.0); Mean Corpuscular Hemoglobin 30.1 pg (28.0-32.0); Mean Corpuscular Hgb Conc. 33.7 g/dL (32.0-36.0); Mean Corpuscular Volume 89.3 fL (80.0-100.0); Monocytes # (auto) 0.6 10 ^3/uL (0-1.3); Monocytes % (auto) 7.4 % (0.0-12.0); Neutrophils # (auto) 4.9 10 ^3/uL (1.6-8.6); Neutrophils % (auto) 64.3 % (37.0-80.0); Platelet Count (auto) 271 10^3/uL (140-450); Red Blood Cells 4.47 10^6/uL (4.0-5.20); Red Cell Distribution Width 13.6 % (11.8-14.3); White Blood Cell 7.6 10^3/uL (4.4-10.8)
[2024-05-04 03:01] LABS: Chloride 105 mmol/L (98-107); Potassium 3.5 mmol/L (3.5-5.1); Sodium 138 mmol/L (136-145)
[2024-05-04 03:02] LABS: Anion Gap 10 (5-15); Calcium 9.5 mg/dL (8.7-10.4); Carbon Dioxide 23 mmol/L (20-31)
[2024-05-04 03:07] LABS: BUN/Creatinine Ratio 15.1 (10.0-20.0); Blood Urea Nitrogen 13 mg/dL (9-23)
[2024-05-04 03:15] LABS: Glucose 161 mg/dL (74-106)
[2024-05-04 08:00] VITALS: BP_SYST 138; BP_SYST 150; BP_DIAS 100; BP_DIAS 89; PULSE 72; PULSE 75; RESP 17; TEMP 97.7; TEMP 98.5; O2SAT 98
[2024-05-04] MEDS: PANTOPRAZOLE 40 MG/10 ML VIAL INJ IV SCH (10:03)
[2024-05-04] MEDS: LOSARTAN POTASSIUM 50 MG TAB PO SCH (10:07)
[2024-05-04] MEDS: hydroCHLOROthiazide 25 MG TAB PO SCH (10:08)
--- NOTE | 2024-05-04 12:14 | DVHINCON2 ---
GI Consult Consult Note GI consult note Date of Consultation: 04/1924 Chief Complaint: Rectal bleed Referring Physician: Luther [place] H&P: Patient presented to ER with rectal bleeding Patient gives history of three episodes of red blood rectally in the last 8-12 hours, last episode at 2:00 a.m. this morning. Patient has also noticed some mucus. Patient admits to low abdominal pain, and low back pain Patient admits to taking antibiotics for sinusitis from PCP, three different antibiotics unsure about name Patient also was started on Ozempic few months ago, last dosage was two weeks ago Patient has noticed nausea vomiting and diarrhea on and off for three months, seems to have episodes every 2-3 weeks which also has resolved No colonoscopy in past. No family history of colon cancer No blood thinners per patient Patient is scheduled for a sinus procedure 06/16/2024 Past Medical History: HTN Past Surgical History: Denies Social History: NO smoking, drinking ETOH and use of illegal drugs. Family History: Noncontributory Review of Systems: Constitutional: no fever, chill, weight loss HEENT: no eye pain, no hearing loss, no oral lesion, no scleral icterus Heart: no chest pain, no chest pressure Lung: no cough, no dyspnea with exertion Abdomen: see HPI Physical exam: General: NAD, AAOX3 Chest: lung jacobs clear to auscultation Heart: RRR, no murmur Abdomen: non-distended, no tenderness to palpation, +BS Labs: Labs Test 05/04/24 02:28 05/03/24 21:07 05/03/24 18:35 05/03/24 14:26 Range/Units White Blood Count 7.6 4.4-10.8 10^3/uL Red Blood Count 4.47 4.0-5.20 10^6/uL Hemoglobin 13.4 12.2-16.2 g/dL Hematocrit 39.9 36.0-46.0 % Mean Corpuscular Volume 89.3 80.0-100.0 fL Mean Corpuscular Hemoglobin 30.1 28.0-32.0 pg Mean Corpuscular Hemoglobin Concent 33.7 32.0-36.0 g/dL Red Cell Distribution Width 13.6 11.8-14.3 % Platelet Count 271 140-450 10^3/uL Mean Platelet Volume 7.3 6.9-10.8 fL Neutrophils (%) (Auto) 64.3 37.0-80.0 % Lymphocytes (%) (Auto) 26.7 10.0-50.0 % Monocytes (%) (Auto) 7.4 0.0-12.0 % Eosinophils (%) (Auto) 1.2 0.0-7.0 % Basophils (%) (Auto) 0.4 0.0-2.0 % Neutrophils # (Auto) 4.9 1.6-8.6 10 ^3/uL Lymphocytes # (Auto) 2.0 0.4-5.4 10 ^3/uL Monocytes # (Auto) 0.6 0-1.3 10 ^3/uL Eosinophils # (Auto) 0.1 0-0.8 10 ^3/uL Basophils # (Auto) 0 0-0.2 10 ^3/uL Nucleated Red Blood Cells 0.0 % Sodium Level 138 136-145 mmol/L Potassium Level 3.5 3.5-5.1 mmol/L Chloride Level 105 98-107 mmol/L Carbon Dioxide Level 23 20-31 mmol/L Anion Gap 10 5-15 Blood Urea Nitrogen 13 9-23 mg/dL Creatinine 0.86 0.550-1.02 mg/dL Glomerular Filtration Rate Calc 74 >90 mL/min BUN/Creatinine Ratio 15.1 10.0-20.0 Serum Glucose 161 H 74-106 mg/dL Calcium Level 9.5 8.7-10.4 mg/dL Stool Occult Blood Positive Negative Stool Occult Blood Sample #3 Negative Urine Color Light-yellow Yellow Urine Clarity Clear Clear Urine pH 6.5 5.0-9.0 Urine Specific [place] 1.008 1.001-1.035 Urine Protein Negative Negative Urine Ketones Negative Negative Urine Blood Negative Negative /uL Urine Nitrite Negative Negative Urine Bilirubin Negative Negative Urine Urobilinogen Normal Negative mg/dL Urine Leukocyte Esterase Trace Negative /uL Urine RBC 1 0 - 4 /hpf Urine Microscopic WBC 1 0-5 /HPF Urine Squamous Epithelial Cells None seen <5 /hpf Urine Bacteria None seen None Seen /hpf Urine Glucose Normal Normal mg/dL Lactic Acid Level 1.2 0.4-2.0 mmol/L Test 05/03/24 14:25 Range/Units Prothrombin Time 10.4 9.3-11.8 sec Prothrombin Time INR 0.98 0.9-1.15 Activated Partial Thromboplast Time 27.3 24.5-34.5 SEC Total Bilirubin 1.0 0.2-1.0 mg/dL Aspartate Amino Transferase (AST) 21 13-40 U/L Alanine Aminotransferase (ALT) 21 7-40 U/L Alkaline Phosphatase 86 46-116 U/L Troponin I High Sensitivity < 3 L </=34 ng/L Total Protein 7.0 5.7-8.2 g/dL Albumin 4.9 H 3.2-4.8 g/dL Lipase 59 H 12-53 U/L Imaging: CT abdomen pelvis IMPRESSION: 1. No acute abdominal or pelvic findings. Punctate nonobstructive left renal calculus. Bilateral renal cysts. Coarse calcification in the left renal parenchyma. Subcentimeter hepatic cyst. Diffuse underdistention of colon is nonspecific, an infectious or inflammatory process is not excluded. Clinical correlation and continued follow-up is recommended. Assessment: Rectal bleeding Diarrhea Plan: Discussed with Dr. Cooper Abdominal ultrasound to evaluate for if elevated lipase Recheck lipase in a.m. CRP Stool for bacterial culture and C diff. stool occult blood Levaquin and Flagyl Can advance to full liquid if tolerating clear liquid diet We will continue to monitor the patient Discussed plan with patient and RN Thank you for this consult Date of Service: May 04, 2024 Billing Provider: ZURI SCHMID Common Visit Codes: CONSULT ONLY Consultation Codes: [id number] CONSULT <45MIN ZURI SCHMID May 04, 2024 12:14
[2024-05-04 12:30] VITALS: BP 161/95; PULSE 74; RESP 18; TEMP 97.9; O2SAT 97
--- NOTE | 2024-05-04 13:01 | DVH ---
INDICATION: elevated lipase TECHNIQUE: Multiple real-time sonographic images of the abdomen were obtained. COMPARISON: None FINDINGS: The liver is homogenous in echogenicity. The liver measures 14cm. No intrahepatic biliary ductal dilatation is noted. The gallbladder wall measures 0.2 cm and is unremarkable. No gallstones or sludge is seen. The com mon duct measures 0.4 cm and is unremarkable. No pericholecystic fluid is noted. The right kidney measures 8cm. No hydronephrosis. 5 cm renal cyst. The pancreas is not well visualized due to obscuration from bowel gas. The visualized portions of the IVC and aorta are grossly unremarkable. IMPRESSION: Normal exam of the abdomen.
[2024-05-04] MEDS: metroNIDAZOLE 500MG/100ML 100 ML IV SCH (13:21)
--- NOTE | 2024-05-04 14:14 | DVHPN2 ---
Subjective Rectal bleeding for 2 days She has been having intermittent diarrhea for few months She was treated for sinusitis 3 times with antibiotics in the last few months Changes from previous H/P or p: Changes Objective Vitals Vital Signs Date Time Temp Pulse Resp B/P (MAP) Pulse Ox O2 Delivery O2 Flow Rate FiO2 05/04/24 12:30 97.9 74 18 161/95 (117) 97 97.9 05/04/24 08:00 Room Air* 0 21 Intake/Output Intake and Output 05/04/24 07:00 Intake Total 1000 ml Balance 1000 ml Intake IV Total 1000 ml General Appearance: Alert, Oriented X3, Cooperative Lungs: Clear to auscultation, Normal air movement Cardiovascular: Regular rate, Normal S1 Abdomen: Normal bowel sounds, Soft Extremities: No edema Medications Current Medications Medications Dose Ordered Sig/Mercedes Route Start Time Stop Time Status Last Admin Dose Admin Hydrochlorothiazide 25 mg DAILY PO 05/04/24 10:00 05/04/24 10:08 25 MG Losartan Potassium 50 mg DAILY PO 05/04/24 10:00 05/04/24 10:07 50 MG Ondansetron HCl 4 mg Q4HP PRN IV 05/03/24 19:30 Pantoprazole Sodium 40 mg DAILY IV 05/04/24 10:00 05/04/24 10:03 40 MG Levofloxacin/ Dextrose 100 ml @ 100 mls/hr DAILY IV 05/05/24 10:00 UNV Metronidazole 100 ml @ 100 mls/hr Q8HR IV 05/04/24 14:00 05/04/24 13:21 100 MLS/HR Laboratory Results Laboratory Tests 05/04/24 02:28 Chemistry Test 05/03/24 14:25 05/04/24 02:28 Albumin 4.9 g/dL (3.2-4.8) H Calcium Level 10.0 mg/dL (8.7-10.4) 9.5 mg/dL (8.7-10.4) Total Protein 7.0 g/dL (5.7-8.2) Coagulation Test 05/03/24 14:25 Prothrombin Time 10.4 sec (9.3-11.8) Prothrombin Time INR 0.98 (0.9-1.15) Activated Partial Thromboplast Time 27.3 SEC (24.5-34.5) Lipid panel Test 05/03/24 14:25 Lipase 59 U/L (12-53) H LFT Test 05/03/24 14:25 Alanine Aminotransferase (ALT) 21 U/L (7-40) Alkaline Phosphatase 86 U/L (46-116) Aspartate Amino Transferase (AST) 21 U/L (13-40) Total Bilirubin 1.0 mg/dL (0.2-1.0) Urinalysis Test 05/03/24 18:35 Urine Color Light-yellow (Yellow) Urine Clarity Clear (Clear) Urine pH 6.5 (5.0-9.0) Urine Specific [place] 1.008 (1.001-1.035) Urine Protein Negative (Negative) Urine Ketones Negative (Negative) Urine Blood Negative /uL (Negative) Urine Nitrite Negative (Negative) Urine Bilirubin Negative (Negative) Urine Urobilinogen Normal mg/dL (Negative) Urine Leukocyte Esterase Trace /uL (Negative) Urine RBC 1 /hpf (0 - 4) Urine Microscopic WBC 1 /HPF (0-5) Urine Squamous Epithelial Cells None seen /hpf (<5) Urine Bacteria None seen /hpf (None Seen) Urine Glucose Normal mg/dL (Normal) Assessment/Plan Assessment/Plan Rectal bleeding Diarrhea Abdominal pain Left renal calculus, nonobstructive Bilateral renal cysts Possible colitis Rule out C diff colitis Hypertension Plan Clear liquid diet IV Flagyl IV Cipro GI consult Get the C diff sample in his stools Monitor closely The rest of the management will depend on the hospital course Plan discussed with: Patient Date of Service: May 04, 2024 Billing Provider: JUAN A KAHN MD Common Visit Codes: [id number] INP/OBS CARE(HIGH) JUAN A KAHN MD May 04, 2024 14:14
[2024-05-04] MEDS: CIPROFLOXACIN 400MG/200ML 200 ML IV ONE (15:51)
[2024-05-04 17:00] VITALS: BP 142/88; PULSE 72; RESP 17; TEMP 97.7; O2SAT 97
[2024-05-04 20:00] VITALS: PULSE 64; RESP 18; O2SAT 96
[2024-05-04] MEDS: CIPROFLOXACIN 400MG/200ML 200 ML IV SCH (21:10)
[2024-05-05] VITALS (7 sets, daily range): BP systolic 140–183; BP diastolic 95–117; PULSE 64–109; RESP 18–20; TEMP 98–98.4; O2SAT 95–100
[2024-05-05] MEDS ORDERED: levoFLOXacin 500MG 100 ML IV SCH (10:00)
[2024-05-05] MEDS ORDERED: ACETAMINOPHEN 325 MG TAB PO PRN (10:15)
[2024-05-05 11:00] LABS: Basophils # (auto) 0 10 ^3/uL (0-0.2); Basophils % (auto) 0.4 % (0.0-2.0); Eosinophils # (auto) 0.1 10 ^3/uL (0-0.8); Eosinophils % (auto) 1.6 % (0.0-7.0); Hematocrit 35.9 % (36.0-46.0); Hemoglobin 12.7 g/dL (12.2-16.2); Lymphocytes # (auto) 1.3 10 ^3/uL (0.4-5.4); Lymphocytes % (auto) 28.6 % (10.0-50.0); Mean Corpuscular Hemoglobin 30.9 pg (28.0-32.0); Mean Corpuscular Hgb Conc. 35.5 g/dL (32.0-36.0); Monocytes # (auto) 0.4 10 ^3/uL (0-1.3); Monocytes % (auto) 9.7 % (0.0-12.0); Neutrophils # (auto) 2.6 10 ^3/uL (1.6-8.6); Neutrophils % (auto) 59.7 % (37.0-80.0); Nucleated Red Blood Cells % 0.1 %; Platelet Count (auto) 252 10^3/uL (140-450); Red Blood Cells 4.12 10^6/uL (4.0-5.20); Red Cell Distribution Width 13.3 % (11.8-14.3); White Blood Cell 4.4 10^3/uL (4.4-10.8)
[2024-05-05 11:11] LABS: Alanine Aminotransferase 17 U/L (7-40); Albumin 4.2 g/dL (3.2-4.8); Alkaline Phosphatase 67 U/L (46-116); Anion Gap 9 (5-15); Aspartate Aminotransferase 15 U/L (13-40); BUN/Creatinine Ratio 7.7 (10.0-20.0); Calcium 9.6 mg/dL (8.7-10.4); Carbon Dioxide 23 mmol/L (20-31); Glucose 97 mg/dL (74-106); Magnesium 1.9 mg/dL (1.6-2.6); Sodium 140 mmol/L (136-145)
[2024-05-05 11:12] LABS: Total Protein 6.1 g/dL (5.7-8.2)
[2024-05-05] MEDS: GOLYTELY 4L KIT PO ONE (11:16)
[2024-05-05 11:19] LABS: Blood Urea Nitrogen 6 mg/dL (9-23); Chloride 108 mmol/L (98-107); Lipase 69 U/L (12-53); Potassium 3.4 mmol/L (3.5-5.1)
--- NOTE | 2024-05-05 11:41 | DVHPN2 ---
Subjective No bowel movements No bleeding No abdominal pain The patient is scheduled for colonoscopy tomorrow and therefore she started a bowel regimen today per GI Changes from previous H/P or p: Changes Objective Vitals Vital Signs Date Time Temp Pulse Resp B/P (MAP) Pulse Ox O2 Delivery O2 Flow Rate FiO2 05/05/24 09:00 161/86 05/05/24 09:00 98.0 70 20 96 98.0 05/05/24 08:00 Room Air* 0 21 Intake/Output Intake and Output 05/05/24 07:00 Intake Total 1200 ml Output Total 600 ml Balance 600 ml Intake Oral 800 ml IV Total 400 ml Output Urine Total 600 ml General Appearance: Alert, Oriented X3, Cooperative Lungs: Clear to auscultation, Normal air movement Cardiovascular: Regular rate, Normal S1 Abdomen: Normal bowel sounds, Soft Extremities: No edema Medications Current Medications Medications Dose Ordered Sig/Mercedes Route Start Time Stop Time Status Last Admin Dose Admin Hydrochlorothiazide 25 mg DAILY PO 05/04/24 10:00 05/05/24 08:59 25 MG Losartan Potassium 50 mg DAILY PO 05/04/24 10:00 05/05/24 09:00 50 MG Ondansetron HCl 4 mg Q4HP PRN IV 05/03/24 19:30 Pantoprazole Sodium 40 mg DAILY IV 05/04/24 10:00 05/05/24 08:59 40 MG Metronidazole 100 ml @ 100 mls/hr Q8HR IV 05/04/24 14:00 05/05/24 05:32 100 MLS/HR Ciprofloxacin 200 ml @ 200 mls/hr Q12HR IV 05/04/24 22:00 05/05/24 08:59 200 MLS/HR Acetaminophen 650 mg Q6HP PRN PO 05/05/24 10:15 Laboratory Results Laboratory Tests 05/05/24 09:08 Chemistry Test 05/05/24 09:08 Albumin 4.2 g/dL (3.2-4.8) Calcium Level 9.6 mg/dL (8.7-10.4) Magnesium Level 1.9 mg/dL (1.6-2.6) Total Protein 6.1 g/dL (5.7-8.2) Lipid panel Test 05/05/24 09:08 Lipase 69 U/L (12-53) H LFT Test 05/05/24 09:08 Alanine Aminotransferase (ALT) 17 U/L (7-40) Alkaline Phosphatase 67 U/L (46-116) Aspartate Amino Transferase (AST) 15 U/L (13-40) Total Bilirubin 1.0 mg/dL (0.2-1.0) Urinalysis Test 05/03/24 18:35 Urine Color Light-yellow (Yellow) Urine Clarity Clear (Clear) Urine pH 6.5 (5.0-9.0) Urine Specific [place] 1.008 (1.001-1.035) Urine Protein Negative (Negative) Urine Ketones Negative (Negative) Urine Blood Negative /uL (Negative) Urine Nitrite Negative (Negative) Urine Bilirubin Negative (Negative) Urine Urobilinogen Normal mg/dL (Negative) Urine Leukocyte Esterase Trace /uL (Negative) Urine RBC 1 /hpf (0 - 4) Urine Microscopic WBC 1 /HPF (0-5) Urine Squamous Epithelial Cells None seen /hpf (<5) Urine Bacteria None seen /hpf (None Seen) Urine Glucose Normal mg/dL (Normal) Assessment/Plan Assessment/Plan Rectal bleeding Diarrhea Abdominal pain Left renal calculus, nonobstructive Bilateral renal cysts Possible colitis Rule out C diff colitis Hypertension Plan Clear liquid diet IV Flagyl IV Cipro GI consult Get the C diff sample in his stools Monitor closely The rest of the management will depend on the hospital course 05/05/2024: Clear liquid diet Bowel preparation for colonoscopy for tomorrow No bowel movements No bleeding Hemoglobin is stable C diff sample is still pending The rest of the management will depend on the hospital course Plan discussed with: Patient My Orders Orders - JUAN A KAHN MD Procedure Category Date Status Time Ciprofloxacin PHA 05/04/24 In Process 400mg/200ml (Cipro Iv) 22:00 Acetaminophen Tablet PHA 05/05/24 In Process (Tylenol Tablet) 10:15 Date of Service: May 05, 2024 Billing Provider: JUAN A KAHN MD Common Visit Codes: [id number] INP/OBS CARE(HIGH) JUAN A KAHN MD May 05, 2024 11:40
--- NOTE | 2024-05-05 12:03 | DVHPN2 ---
Progress Note Date Seen: May 05, 2024 Resident Creating Document: SATURNINO URBINA RESIDENT Medical Necessity Reason Pt with a Central, PICC or Fol: No Subjective Review of Systems Patient was seen and examined on the bedside. She is alert, Oriented x3. Mentioned no per rectal bleeding and or any bowel movements since admission. No other active complaint. Scheduled for possible colonoscopy tomorrow and pending C diff study. If C diff is positive we will cancel the colonoscopy and recommendation would be outpatient elective colonoscopy after discharge. Objective vital signs Vital Sign Date Time Temp Pulse Resp B/P (MAP) Pulse Ox O2 Delivery O2 Flow Rate FiO2 05/05/24 09:00 161/86 05/05/24 09:00 98.0 70 20 96 98.0 05/05/24 08:00 Room Air* 0 21 Total Intake and Output 05/04/24 05/04/24 05/05/24 15:00 23:00 07:00 Intake Total 100 ml 200 ml 900 ml Output Total 600 ml Balance 100 ml 200 ml 300 ml medications Current Medications Medications Dose Ordered Sig/Mercedes Route Start Time Stop Time Status Last Admin Dose Admin Hydrochlorothiazide 25 mg DAILY PO 05/04/24 10:00 05/05/24 08:59 25 MG Losartan Potassium 50 mg DAILY PO 05/04/24 10:00 05/05/24 09:00 50 MG Ondansetron HCl 4 mg Q4HP PRN IV 05/03/24 19:30 Pantoprazole Sodium 40 mg DAILY IV 05/04/24 10:00 05/05/24 08:59 40 MG Metronidazole 100 ml @ 100 mls/hr Q8HR IV 05/04/24 14:00 05/05/24 05:32 100 MLS/HR Ciprofloxacin 200 ml @ 200 mls/hr Q12HR IV 05/04/24 22:00 05/05/24 08:59 200 MLS/HR Acetaminophen 650 mg Q6HP PRN PO 05/05/24 10:15 Examination Physical examination: General Appearance: Alert, Oriented X3, Cooperative, No acute distress HEENT: Atraumatic, PERRLA, EOMI, Mucous membrane moist/pink Respiratory: Clear to auscultation, Normal air movement Cardiovascular: Regular rate, Normal S1, Normal S2, No murmurs, no chest wall tenderness Abdominal: Normal bowel sounds, Soft, No tenderness, No hepatospenomegaly, No masses Extremities: No clubbing, No cyanosis, No edema, Normal pulses, No tenderness/swelling Skin: No rashes, No breakdown, No significant lesion Neuro: Normal gait, Normal speech, Strength at 5/5 X4 ext, Normal tone, Sensation intact, Cranial nerves 3-12 NL, Reflexes 2+ Psych/Mental Status: Mental status NL, Mood NL laboratory and microbiology Laboratory Tests 05/05/24 09:08 Test 05/05/24 09:08 Range/Units Serum Glucose 97 74-106 mg/dL Labs and/or images reviewed: Labs reviewed by me, Image(s) reviewed by me Problem List/Assessment/Plan Problem List/Assessment/Plan Assessment: # Rectal bleeding # Diarrhea # Rule out pancreatitis # Possible colitis # Ruled out cholelithiasis Plan: - Clear liquid diet - H&H is stable. - Possible colonoscopy tomorrow - Pending C diff study - Stool occult blood negative - Elevated CRP - Continue IV antibiotics and other management as per primary - We will follow the patient. Plan discussed with Dr. Cooper Plan discussed with: Patient, Other SATURNINO URBINA RESIDENT May 05, 2024 12:03
[2024-05-05] MEDS: POTASSIUM EFFERVESENT TAB 25 MEQ PO ONE (13:54)
[2024-05-06] VITALS (7 sets, daily range): BP systolic 141–154; BP diastolic 89–92; PULSE 73–98; RESP 12–20; TEMP 98–98.1; O2SAT 96–99
[2024-05-06 05:32] LABS: Basophils # (auto) 0 10 ^3/uL (0-0.2); Basophils % (auto) 0.8 % (0.0-2.0); Eosinophils # (auto) 0.1 10 ^3/uL (0-0.8); Eosinophils % (auto) 2.8 % (0.0-7.0); Hematocrit 39.7 % (36.0-46.0); Hemoglobin 13.6 g/dL (12.2-16.2); Lymphocytes # (auto) 1.4 10 ^3/uL (0.4-5.4); Lymphocytes % (auto) 36.8 % (10.0-50.0); Mean Corpuscular Hemoglobin 30.2 pg (28.0-32.0); Mean Corpuscular Hgb Conc. 34.3 g/dL (32.0-36.0); Mean Corpuscular Volume 88.2 fL (80.0-100.0); Monocytes # (auto) 0.4 10 ^3/uL (0-1.3); Neutrophils # (auto) 1.9 10 ^3/uL (1.6-8.6); Neutrophils % (auto) 49.6 % (37.0-80.0); Nucleated Red Blood Cells % 0.5 %; Platelet Count (auto) 289 10^3/uL (140-450); Red Blood Cells 4.49 10^6/uL (4.0-5.20); Red Cell Distribution Width 13.2 % (11.8-14.3); White Blood Cell 3.8 10^3/uL (4.4-10.8)
[2024-05-06 05:46] LABS: Alanine Aminotransferase 17 U/L (7-40); Albumin 4.5 g/dL (3.2-4.8); Alkaline Phosphatase 74 U/L (46-116); Anion Gap 11 (5-15); Aspartate Aminotransferase 18 U/L (13-40); BUN/Creatinine Ratio 5.8 (10.0-20.0); Carbon Dioxide 25 mmol/L (20-31); Chloride 105 mmol/L (98-107); Glucose 90 mg/dL (74-106); Potassium 3.8 mmol/L (3.5-5.1); Sodium 141 mmol/L (136-145)
[2024-05-06 05:47] LABS: Bilirubin, Total 1.1 mg/dL (0.2-1.0); Total Protein 6.8 g/dL (5.7-8.2)
[2024-05-06] MEDS: MAGNESIUM CITRATE SOLUTION 300 ML BTL PO ONE (05:53)
[2024-05-06 06:00] LABS: Blood Urea Nitrogen 5 mg/dL (9-23)
--- NOTE | 2024-05-06 06:02 | DVH ---
EXAM: XR Chest, 1 View CLINICAL INDICATION: colonoscopy TECHNIQUE: Frontal view of the chest. COMPARISON: None FINDINGS: LUNGS AND PLEURAL SPACES: Unremarkable. No consolidation. No pneumothorax. HEART: Unremarkable. No cardiomegaly. MEDIASTINUM: Unremarkable. Normal mediastinal contour. BONES/JOINTS: Unremarkable. No acute fracture. OTHER FINDINGS: . None. ... IMPRESSION: No acute cardiopulmonary process.
--- NOTE | 2024-05-06 06:05 | ECG ---
[facility] Test Date: 2024-05-06 Test Time: 05:56:40 Pat Name: TUSHAR MICHELLE Department: Room: 0274 B Gender: F Behavior Management Specialist: TAMICA : 1955 Requested By: JUAN A KAHN Order Number: [id number] Reading MD: Sarthak Love Measurements Intervals [place] Rate: 61 P: 79 WA: 170 QRS: 51 QRSD: 143 T: 11 QT: 445 QTc: 449 Interpretive Statements Sinus rhythm Right bundle branch block Electronically Signed On 05-10-2024 21:25:06 PST by Sarthak Love Please click the below link to view image of tracing.
[2024-05-06] MEDS: GOLYTELY 4L KIT PO ONE (06:18)
[2024-05-06] MEDS ORDERED: fentaNYL CITRATE 100 MCG/2 ML VL ONE (07:50)
[2024-05-06] MEDS ORDERED: MIDAZOLAM HCL 5 MG/ML-1ML VIAL ONE (07:50)
[2024-05-06] MEDS ORDERED: SODIUM CHLORIDE LOCK 10 ML ONE (07:50)
[2024-05-06] MEDS ORDERED: diphenhdrAMINE HCL 50 MG/1 ML VL ONE (07:50)
--- NOTE | 2024-05-06 17:53 | DVHOP2 ---
Operative Report DATE OF OPERATION: 05/06/24 PROCEDURE: Colonoscopy with snare polypectomy. PREOPERATIVE INDICATION: The patient is a 68 -year-old female undergoing colonoscopy for evaluation of rectal bleeding and mucus POSTOPERATIVE DIAGNOSES: 1. Patient had three benign-appearing rectosigmoid polyps less than 1 cm in size, two were removed by snare polypectomy and one by cold biopsy forceps 2. There was minimal sigmoiditis and sigmoid biopsies were obtained 3. The patient had a 1.5-2 cm hyperplastic type superficially spreading benign polyp seen in the mid ascending colon that was removed completely via snare polypectomy and the specimens were retrieved 4. Trace internal hemorrhoids otherwise normal examination up to the cecum and terminal PROCEDURE PERFORMED BY: Alexandre Cooper M.D. SCOPE: Olympus videocolonoscope. ASA CLASS: 2 PREOPERATIVE MEDICATIONS: Versed 4 mg, Fentanyl 100 mcg, Benadryl 50 mg PROCEDURE IN DETAIL: After obtaining an informed consent, the patient was placed on left lateral decubitus position. She was then sedated with the above medications. A rectal examination was performed that was normal. The colonoscope was then passed through the anus into the rectosigmoid and through the descending, transverse, and ascending colon up to the cecum with visualization of the appendiceal orifice, base of the cecum and the ileocecal valve. The colonoscope was then withdrawn. The distal 5 cm of the terminal ileum were normal. In the mid ascending colon there was a sessile benign-appearing superficially spreading polypoid lesion. This appeared either hyperplastic or a serrated adenoma This was removed completely via hot snare polypectomy and the specimens were retrieved. The patient had minimal sigmoiditis and sigmoid biopsies were obtained In the rectosigmoid the patient had three less than 1 cm benign-appearing polyps. One was removed by cold biopsy forceps and the other two were removed by hot snare polypectomy On retroflexion and straight on view the patient had trace internal hemorrhoids. The patient tolerated the procedure well without difficulty. WITHDRAWAL TIME: 20 minutes QUALITY OF THE PREP: [place] Bowel Prep score: 9. COMPLICATIONS : None SPECIMENS: Ascending colon polyp Rectosigmoid polyps Sigmoid biopsies DISPOSITION: Transfer back to the floor Stable PLAN: 1. Repeat colonoscopy based on biopsy result likely in 2-3 years for surveillance 2. Resume GI soft diet advance as tolerated 3. DC aspirin NSAIDs blood thinners for one week 4. Outpatient follow up with me in 4-6 weeks to review results and discuss further management ALEXANDRE COOPER MD May 06, 2024 17:53
--- NOTE | 2024-05-06 20:32 | DVHPN2 ---
Subjective Colonoscopy today Changes from previous H/P or p: Changes Objective Vitals Vital Signs Date Time Temp Pulse Resp B/P (MAP) Pulse Ox O2 Delivery O2 Flow Rate FiO2 05/06/24 18:07 64 14 149/89 (109) 97 05/06/24 17:25 Room Air 0 05/06/24 17:25 97 05/06/24 16:39 98.1 98.1 Intake/Output Intake and Output 05/06/24 07:00 Intake Total 2150 ml Balance 2150 ml Intake Oral 1350 ml IV Total 800 ml # Voids 10 General Appearance: Alert, Oriented X3, Cooperative Lungs: Clear to auscultation, Normal air movement Cardiovascular: Regular rate, Normal S1 Abdomen: Normal bowel sounds, Soft Extremities: No edema Medications Current Medications Medications Dose Ordered Sig/Mercedes Route Start Time Stop Time Status Last Admin Dose Admin Hydrochlorothiazide 25 mg DAILY PO 05/04/24 10:00 05/06/24 09:29 25 MG Losartan Potassium 50 mg DAILY PO 05/04/24 10:00 05/06/24 09:30 50 MG Ondansetron HCl 4 mg Q4HP PRN IV 05/03/24 19:30 Pantoprazole Sodium 40 mg DAILY IV 05/04/24 10:00 05/06/24 09:30 40 MG Metronidazole 100 ml @ 100 mls/hr Q8HR IV 05/04/24 14:00 05/06/24 13:55 100 MLS/HR Ciprofloxacin 200 ml @ 200 mls/hr Q12HR IV 05/04/24 22:00 05/06/24 09:28 200 MLS/HR Acetaminophen 650 mg Q6HP PRN PO 05/05/24 10:15 Laboratory Results Laboratory Tests 05/06/24 04:59 Chemistry Test 05/06/24 04:59 Albumin 4.5 g/dL (3.2-4.8) Calcium Level 10.0 mg/dL (8.7-10.4) Magnesium Level 2.0 mg/dL (1.6-2.6) Total Protein 6.8 g/dL (5.7-8.2) LFT Test 05/06/24 04:59 Alanine Aminotransferase (ALT) 17 U/L (7-40) Alkaline Phosphatase 74 U/L (46-116) Aspartate Amino Transferase (AST) 18 U/L (13-40) Total Bilirubin 1.1 mg/dL (0.2-1.0) H Urinalysis Test 05/03/24 18:35 Urine Color Light-yellow (Yellow) Urine Clarity Clear (Clear) Urine pH 6.5 (5.0-9.0) Urine Specific [place] 1.008 (1.001-1.035) Urine Protein Negative (Negative) Urine Ketones Negative (Negative) Urine Blood Negative /uL (Negative) Urine Nitrite Negative (Negative) Urine Bilirubin Negative (Negative) Urine Urobilinogen Normal mg/dL (Negative) Urine Leukocyte Esterase Trace /uL (Negative) Urine RBC 1 /hpf (0 - 4) Urine Microscopic WBC 1 /HPF (0-5) Urine Squamous Epithelial Cells None seen /hpf (<5) Urine Bacteria None seen /hpf (None Seen) Urine Glucose Normal mg/dL (Normal) Microbiology Microbiology Date/Time Source Procedure Growth Status 05/05/24 11:20 Stool Stool Culture - Preliminary Resulted 05/05/24 11:20 Stool Shiga Toxin I & II - Final Resulted 05/05/24 11:20 Stool Clostridium difficile Toxin Assay - Final Resulted Assessment/Plan Assessment/Plan Rectal bleeding Diarrhea Abdominal pain Left renal calculus, nonobstructive Bilateral renal cysts Possible colitis Rule out C diff colitis Hypertension Plan Clear liquid diet IV Flagyl IV Cipro GI consult Get the C diff sample in his stools Monitor closely The rest of the management will depend on the hospital course 05/05/2024: Clear liquid diet Bowel preparation for colonoscopy for tomorrow No bowel movements No bleeding Hemoglobin is stable C diff sample is still pending The rest of the management will depend on the hospital course 05/06/24: Colonoscopy today Plan discussed with: Patient My Orders Orders - JUAN A KAHN MD Procedure Category Date Status Time Chest Xray 1 View XY 05/06/24 Resulted 04:43 Date of Service: May 06, 2024 Billing Provider: JUAN A KAHN MD Common Visit Codes: [id number] INP/OBS CARE(HIGH) JUAN A KAHN MD May 06, 2024 20:32
[2024-05-07 08:00] VITALS: PULSE 89; RESP 19
[2024-05-07 09:00] VITALS: BP 127/86; PULSE 89; RESP 19; TEMP 98; O2SAT 90
[2024-05-07 13:00] VITALS: BP 127/82; PULSE 94; RESP 18; TEMP 98.1; O2SAT 96
[2024-05-07 15:30] LABS: Urine Bacteria None Seen /hpf (None Seen)
[2024-05-07 16:03] LABS: Urine Blood Negative /uL (Negative); Urine Clarity Clear (Clear); Urine Color Colorless (Yellow); Urine Hyaline Cast FEW /lpf (0 - 2); Urine Mucus FEW (None Seen); Urine Protein, UAD Negative (Negative); Urine Specific Gravity 1.007 (1.001-1.035); Urine Squamous Epithelial Cell FEW /hpf (<5); Urine Urobilinogen Normal (Negative); Urine WBC < 1 /HPF (0-5)
[2024-05-07 17:00] VITALS: BP 124/88; PULSE 83; RESP 20; TEMP 98.2; O2SAT 95
--- NOTE | 2024-05-07 17:26 | DVHDS2 ---
Discharge Summary Date of Admission May 03, 2024 at 19:25 Date of Discharge: May 07, 2024 Admitting Diagnosis rectal bleeding Wounds: nil Labs/Diagnostic Data: Laboratory Results Test 05/07/24 15:05 05/06/24 04:59 05/05/24 11:20 05/05/24 09:08 Urine Color Colorless (Yellow) Urine Clarity Clear (Clear) Urine pH 5.0 (5.0-9.0) Urine Specific [place] 1.007 (1.001-1.035) Urine Protein Negative (Negative) Urine Ketones Negative (Negative) Urine Blood Negative /uL (Negative) Urine Nitrite Negative (Negative) Urine Bilirubin Negative (Negative) Urine Urobilinogen Normal mg/dL (Negative) Urine Leukocyte Esterase Negative /uL (Negative) Urine RBC 1 /hpf (0 - 4) Urine Microscopic WBC < 1 /HPF (0-5) Urine Squamous Epithelial Cells Few /hpf (<5) Urine Bacteria None seen /hpf (None Seen) Urine Hyaline Casts Few /lpf (0 - 2) Urine Mucus Few (None Seen) Urine Glucose Normal mg/dL (Normal) White Blood Count 3.8 10^3/uL (4.4-10.8) Red Blood Count 4.49 10^6/uL (4.0-5.20) Hemoglobin 13.6 g/dL (12.2-16.2) Hematocrit 39.7 % (36.0-46.0) Mean Corpuscular Volume 88.2 fL (80.0-100.0) Mean Corpuscular Hemoglobin 30.2 pg (28.0-32.0) Mean Corpuscular Hemoglobin Concent 34.3 g/dL (32.0-36.0) Red Cell Distribution Width 13.2 % (11.8-14.3) Platelet Count 289 10^3/uL (140-450) Mean Platelet Volume 7.5 fL (6.9-10.8) Neutrophils (%) (Auto) 49.6 % (37.0-80.0) Lymphocytes (%) (Auto) 36.8 % (10.0-50.0) Monocytes (%) (Auto) 10.0 % (0.0-12.0) Eosinophils (%) (Auto) 2.8 % (0.0-7.0) Basophils (%) (Auto) 0.8 % (0.0-2.0) Neutrophils # (Auto) 1.9 10 ^3/uL (1.6-8.6) Lymphocytes # (Auto) 1.4 10 ^3/uL (0.4-5.4) Monocytes # (Auto) 0.4 10 ^3/uL (0-1.3) Eosinophils # (Auto) 0.1 10 ^3/uL (0-0.8) Basophils # (Auto) 0 10 ^3/uL (0-0.2) Nucleated Red Blood Cells 0.5 % Sodium Level 141 mmol/L (136-145) Potassium Level 3.8 mmol/L (3.5-5.1) Chloride Level 105 mmol/L (98-107) Carbon Dioxide Level 25 mmol/L (20-31) Anion Gap 11 (5-15) Blood Urea Nitrogen 5 mg/dL (9-23) Creatinine 0.86 mg/dL (0.550-1.02) Glomerular Filtration Rate Calc 74 mL/min (>90) BUN/Creatinine Ratio 5.8 (10.0-20.0) Serum Glucose 90 mg/dL (74-106) Calcium Level 10.0 mg/dL (8.7-10.4) Magnesium Level 2.0 mg/dL (1.6-2.6) Total Bilirubin 1.1 mg/dL (0.2-1.0) Aspartate Amino Transferase (AST) 18 U/L (13-40) Alanine Aminotransferase (ALT) 17 U/L (7-40) Alkaline Phosphatase 74 U/L (46-116) Total Protein 6.8 g/dL (5.7-8.2) Albumin 4.5 g/dL (3.2-4.8) Stool Occult Blood Negative (Negative) Stool Occult Blood Sample #3 (Negative) Lipase 69 U/L (12-53) Test 05/04/24 02:28 05/03/24 14:26 05/03/24 14:25 C-Reactive Protein High Sensitivity 1.94 mg/dL (<1.0) Lactic Acid Level 1.2 mmol/L (0.4-2.0) Prothrombin Time 10.4 sec (9.3-11.8) Prothrombin Time INR 0.98 (0.9-1.15) Activated Partial Thromboplast Time 27.3 SEC (24.5-34.5) Troponin I High Sensitivity < 3 ng/L (</=34) Other Laboratory Tests 05/06/24 04:59 Brief Hx & Hospital Course: pt was admitted for rectal bleeding- seen by gi and had egd and had four polyps removed/colonoscopy showed hemmoroids and sigmoid colitis/pt was treated with iv antibiotics halle her colitis/pt hb was stable and patient was dc home in stable condition/pt had ct abdomen that showed 6 mm left renalcalculus and pt was notified of this Consults/Reason for consult gi Operations or Procedures colonoscopy and polypectemy Condition at Discharge: Fair Final Diagnosis/Problems List lower gi bleed from, colitis/polyps- resolved left renal calculus htn h/o back fusion Discharge Disposition: Home Discharge Instruct/Medications Activity: No Restrictions, As Tolerated Follow Up/Referral: pcp in 1-2 weeks gi in 4 weeks on colon polyp biopsy results Medications: ciprofloxacin 500 mg twice daily for 3 more days// flagyl 500 mg every 8 hours for 3 more days// losartan/hctz as before for high bp// preparation h cream as needed for hemmoroids flare ups-avilable otc// Discharge Statement: "Patient was advised to return to the ER or call 911 if any headaches, dizziness, shortness of breath, chest pain, abdominal pain, bleeding, fevers, or worsening of medical condition. Patient was counseled about treatment plan, medications, possible side effects, patientverbalized understanding. All questions were answered to the best of my ability. This discharge took greater then 30 minutes in planning, reviewing documentation, counseling the patient, and discussing with other team members." ASSESSMENT ASSESSMENT Assessment Date of Service: May 07, 2024 Billing Provider: JOHN THIBODEAUX MD Common Visit Codes: [id number]/OBS DISCH DAY >30min JOHN THIBODEAUX MD May 07, 2024 17:26
[2024-05-07] MEDS ORDERED: CIPR500T4 PO (17:27)
[2024-05-07] MEDS ORDERED: METR-344 PO (17:28)
[2024-05-07 18:14] VITALS: BP 127/82; PULSE 94; RESP 18; TEMP 98.1; O2SAT 96
== END 2024-05-07 19:30 | disposition home or self-care (01) | DRG 394 ==
LOC: ER 13:25 → OVERFLOW 19:25 → WEST WING 05-04 16:27
PROVIDERS: ADMIT Internal Medicine Geriatric Medicine; ATTEND Internal Medicine Geriatric Medicine
PROC: 0DBN8ZZ Excision of Sigmoid Colon, Via Natural or Artificial Opening Endoscopic (ICD-10-PCS; 2024-05-06)
PROC: 0DBN8ZX Excision of Sigmoid Colon, Via Natural or Artificial Opening Endoscopic, Diagnostic (ICD-10-PCS; 2024-05-06)
PROC: 0DBK8ZZ Excision of Ascending Colon, Via Natural or Artificial Opening Endoscopic (ICD-10-PCS; principal; 2024-05-06 16:38)
DX: K64.8 Other hemorrhoids (principal); A04.9 Bacterial intestinal infection, unspecified; I10 Essential (primary) hypertension; K63.5 Polyp of colon; N28.1 Cyst of kidney, acquired; N20.0 Calculus of kidney; Z98.1 Arthrodesis status; Z79.899 Other long term (current) drug therapy
CPT/HCPCS: 36415; 45380; 45385; 71045; 74176; 76705; 80048; 80053; 81001; 82270; 83605; 83690; 83735; 84484; 85025; 85610; 85730; 86141; 86850; 86900; 86901; 87045; 87086; 87427; 87493; 93005; 96360; G0378; J2250; J2470; J3490

== ENCOUNTER → 2024-09-30 | Outpatient (CLI) | payer OTHER ==
[~2024-09-30] MED LIST changes: +CIPR500T4 PO; +METR-344 PO
[2024-09-30 10:21] LABS: Chloride 106 mmol/L (98-107); Potassium 3.9 mmol/L (3.5-5.1); Sodium 143 mmol/L (136-145)
[2024-09-30 10:22] LABS: Anion Gap 8 (5-15); Calcium 10.3 mg/dL (8.7-10.4); Carbon Dioxide 29 mmol/L (20-31)
[2024-09-30 10:27] LABS: BUN/Creatinine Ratio 21.2 (10.0-20.0); Blood Urea Nitrogen 21 mg/dL (9-23); Glucose 91 mg/dL (74-106)
== END | disposition home or self-care (01) ==
LOC: LAB 08:40
PROVIDERS: ATTEND Student in an Organized Health Care Education/Training Program
DX: Z01.812 Encounter for preprocedural laboratory examination (principal); I77.89 Other specified disorders of arteries and arterioles
CPT/HCPCS: 36415; 80048